=== PATIENT | male | born 1965 | race American Indian/Alaskan Native ===

== ENCOUNTER 2017-12-15 07:46 | Outpatient (CLI) | payer OTHER ==
--- NOTE | 2017-12-21 09:59 | Mammography Report ---
BILATERAL DIGITAL DIAGNOSTIC MAMMOGRAM with CAD and LEFT BREAST ULTRASOUND: 12/15/17 08:00:00 CLINICAL: 52-year-old male with left-sided pain. According to the technologist, the area pain is outside the breast. COMPARISON:None. FINDINGS: The breasts are most entirely fatty.Minimal bilateral subareolar fibroglandular densities. No mass, architectural distortion or suspicious calcifications. Ultrasound of the upper left breast in the area of pain demonstrated normal fatty structures with no mass, cyst or fluid collection or shadowing. IMPRESSION: Negative mammogram and negative left breast ultrasound. BI-RADS CATEGORY: 1 - - Negative RECOMMENDATION: Clinical follow-up. COMMENT: Patient follow-up letters are generated by our [employer] application. If
== END 2017-12-15 07:47 | disposition home or self-care (01) ==
LOC: US 07:46
PROVIDERS: ATTEND Family Medicine Adult Medicine
DX: N64.4 Mastodynia (principal); Z80.3 Family history of malignant neoplasm of breast
CPT/HCPCS: 77066